=== PATIENT | female | born 2000 | race Caucasian/White ===

== ENCOUNTER 2021-04-30 02:55 | Emergency (ER) | payer OTHER, SELFPAY ==
[2021-04-30 02:59] VITALS: BP 124/79; PULSE 71; RESP 16; TEMP 37.7; O2SAT 100; BMI 23.8
[2021-04-30 03:32] VITALS: O2SAT 98
--- NOTE | 2021-04-30 03:33 | ED_ITS ---
HPI - URI/Sore Throat General Chief Complaint: Upper Respiratory Symptoms Stated Complaint: Sob Time Seen by Provider: 04/30/21 03:25 Source: patient Mode of arrival: ambulatory Limitations: no limitations History of Present Illness HPI Narrative: Patient not COVID vaccinated noticed shortness of breath on exertion nasal congestion also Related Data Allergies Allergy/AdvReac Type Severity Reaction Status Date / Time tobramycin [TOBRAMYCIN] Allergy Unknown HIVES Unverified 04/20/20 17:40 [facility] Past Medical History Medical History (Updated 04/30/21 @ 03:53 by Stephane Meng MD) No known health problems Social History Social History Alcohol intake: current Alcohol intake frequency: a few times a month Patient Tobacco Use Status: Current everyday Tobacco user Smoked in Last 30 Days: Yes Use of substances other than those prescribed or required for medical reasons: No Advance Directives: No Advance Directives Information Provided: No Patient : No Physical Exam Vital Signs: Vital Signs: Last Vital Signs Temp 100.7 F H 04/30/21 03:54 Pulse 60 04/30/21 03:54 Resp 15 04/30/21 03:54 BP 117/64 04/30/21 03:54 Pulse Ox 99 04/30/21 03:54 Body Mass Index 23.8 Appearance: Alert. Oriented X3. No acute distress. ENT: Pharynx normal. Oral Mucosa moist Neck: Normal inspection. Neck supple. CVS: Normal heart rate and rhythm. Pulses normal. Respiratory: No respiratory distress. Equal air entry bilateral, no wheezing/rales/rhonchi Abdomen: Soft and nontender. Skin: Skin warm and dry. Extremities: No lower extremity edema. No calf tenderness Neuro: Oriented X 3 MDM - URI/Sore Throat MDM Narrative Medical decision making narrative: with COVID-19 positive saturating 99% to 100% at room air lungs are clear will discharge patient home Lab Data Attestation: I reviewed the patient's lab results. Labs: Lab Results 04/30/21 Range/Units 03:36 COVID-19 (CRISTY) Positive A (Negative) COVID-19 Clin Com See Note Discharge Plan Discharge Clinical Impression: COVID-19 Patient Disposition: Home, Self-Care Instructions: COVID-19 (Coronavirus Disease 2019) (ED) Additional Instructions: Social isolation for 2 weeks as advised Report to the ER if increased shortness of breath
[2021-04-30 03:54] VITALS: BP 117/64; PULSE 60; RESP 15; TEMP 38.2; O2SAT 99
[2021-04-30 03:54] LABS: COVID-19 Test Positive (Negative)
[2021-04-30] MEDS: Acetaminophen 325 MG TABLET 650 MG PO (04:05)
== END 2021-04-30 04:07 | disposition home or self-care (01) ==
PROVIDERS: Emergency Provider Internal Medicine
DX: U07.1 COVID-19 (principal); R06.02 Shortness of breath; F17.210 Nicotine dependence, cigarettes, uncomplicated; Z71.6 Tobacco abuse counseling
CPT/HCPCS: 36415; 87635; 99283; 99285

== ENCOUNTER 2021-05-31 19:10 | Emergency (ER) | payer OTHER, SELFPAY ==
--- NOTE | ~2021-05-31 | XR_ITS ---
EXAMINATION: XR ANKLE, RIGHT XR FOOT, RIGHT CLINICAL INFORMATION: Right lower extremity injury. COMPARISON: None TECHNIQUE: AP, oblique, and lateral views of the right ankle and right foot. FINDINGS: No acute fracture or dislocation. The ankle mortise is maintained. No joint space narrowing or marginal osteophytes. No osseous erosion. No abnormal soft tissue calcification. Mild circumferential soft tissue swelling at the right ankle. XR/XR ankle RT min 3V IMPRESSION: Mild circumferential soft tissue swelling at the right ankle. No acute fracture or dislocation.
--- NOTE | ~2021-05-31 | XR_ITS ---
EXAMINATION: XR ANKLE, RIGHT XR FOOT, RIGHT CLINICAL INFORMATION: Right lower extremity injury. COMPARISON: None TECHNIQUE: AP, oblique, and lateral views of the right ankle and right foot. FINDINGS: No acute fracture or dislocation. The ankle mortise is maintained. No joint space narrowing or marginal osteophytes. No osseous erosion. No abnormal soft tissue calcification. Mild circumferential soft tissue swelling at the right ankle. XR/XR foot RT min 3V IMPRESSION: Mild circumferential soft tissue swelling at the right ankle. No acute fracture or dislocation.
[2021-05-31 19:27] VITALS: BP 122/76; PULSE 71; RESP 17; TEMP 36.7; O2SAT 98; BMI 22.8
--- NOTE | 2021-05-31 20:28 | ED_ITS ---
HPI - Extremity Injury (Lower) General Chief Complaint: Extremity Injury, Lower Stated Complaint: ankle inj Time Seen by Provider: 05/31/21 20:08 Source: patient Mode of arrival: ambulatory History of Present Illness HPI Narrative: 20-year-old female presenting to the ED complaining of right ankle pain/swelling s/p twisting injury at 1:00 a.m. patient reports fell backwards twisting ankle, denies head trauma, LOC, or injury to other area. Denies numbness, tingling, weakness. Has been minimally ambulatory Related Data Allergies Allergy/AdvReac Type Severity Reaction Status Date / Time tobramycin [TOBRAMYCIN] Allergy Intermediate HIVES Verified 05/31/21 19:26 Review of Systems Review of Systems: Constitutional: No Fever, No Chills ENT/Mouth: No Nasal Congestion, No sore throat Cardiovascular: No Chest Pain, No SOB Respiratory: No Cough Gastrointestinal: No Nausea, No Vomiting, No Abdominal pain Genitourinary:No Urinary Frequency, No Urgency, No Flank Pain Musculoskeletal: + joint pain, No Myalgias, + Joint Swelling Skin: No Skin Lesions, No rash Neuro: No Weakness, No Numbness, No Paresthesias Yes all other systems are reviewed and are negative PMFSH Past Medical History Attestation statement: The following information was validated with the patient. Medical History (Updated 05/31/21 @ 20:30 by AMADA Estrada) No known health problems Social History Social History Alcohol intake: current Alcohol intake frequency: a few times a month Patient Tobacco Use Status: Current everyday Tobacco user Advance Directives: No Advance Directives Information Provided: No Patient : No Physical Exam Vital Signs: Vital Signs: Last Vital Signs Temp 98.1 F 05/31/21 19:27 Pulse 71 05/31/21 19:27 Resp 17 05/31/21 19:27 BP 122/76 05/31/21 19:27 Pulse Ox 98 05/31/21 19:27 Body Mass Index 22.8 Const: General: cooperative, healthy appearing and no acute distress Orientation/consciousness: patient oriented x3 Limitations: no limitations HENMT: Head: Yes normal to inspection Ears: hearing grossly normal bilaterally General nose exam: Normal external nose present Face and sinus: Yes normal facial exam Eyes: General: appearance normal, both eyes and all related structures EOM: EOMs intact bilaterally Neck: Neck: Yes normal visual inspection and Yes no meningeal signs Resp: Effort & Inspection: normal respiratory effort and no respiratory distress Cardio: Rate: regular rate Peripheral pulses: dorsalis pedis present Skin: Rashes: no rashes Wounds: no wounds Neuro: General: patient oriented x3 and no meningeal signs Gait exam (Neuro): Normal gait present Extrem: Other: Right ankle without deformity. Right lateral foot with mild swelling. Right Ankle and Foot with lateral tenderness. No erythema/ecchymosis . Neurovascularly intact. ROM intact to toes and ankle with pain. Sensation intact to light touch Course Course Course Narrative: XR ankle RT min 3V / XR foot RT min 3V IMPRESSION: Mild circumferential soft tissue swelling at the right ankle. ? No acute fracture or dislocation.? >> patient placed in Vishal wrap, is to follow-up with PCP as needed Discharge Plan Discharge Clinical Impression: Ankle sprain and strain Patient Disposition: Home, Self-Care Instructions: Ankle Sprain (ED), How to Use an Elastic Bandage (ED), R.I.C.E. Treatment (ED) Additional Instructions: Your x-ray shows soft tissue swelling, no fracture or dislocation Wear Vishal wrap at home as needed for compression/stability, take off to shower Take Tylenol and Motrin at home for pain and swelling Ice, rest, elevate Please follow-up with her doctor Referrals: Physician,None [Primary Care Provider] - 5 days Stand Alone Forms: Work/School Release
== END 2021-05-31 20:32 | disposition home or self-care (01) ==
PROVIDERS: Emergency Provider Internal Medicine
DX: S93.401A Sprain of unspecified ligament of right ankle, initial encounter (principal); S96.911A Strain of unspecified muscle and tendon at ankle and foot level, right foot, initial encounter; X50.1XXA Overexertion from prolonged static or awkward postures, initial encounter; Y93.9 Activity, unspecified; Y92.9 Unspecified place or not applicable; Y99.9 Unspecified external cause status
CPT/HCPCS: 73610; 73630; 99283

== ENCOUNTER 2021-11-07 04:34 | Emergency (ER) | payer OTHER, SELFPAY ==
[2021-11-07 04:40] VITALS: BP 134/90; PULSE 106; O2SAT 98; BMI 23.8
--- NOTE | 2021-11-07 05:04 | ED_ITS ---
HPI - Overdose General Chief Complaint: Psychiatric Symptoms Stated Complaint: OD Time Seen by Provider: 11/07/21 05:03 Source: patient Mode of arrival: EMS History of Present Illness HPI Narrative: 21-year-old female without significant past medical history, but psychiatric history of depression, anxiety, prior suicide attempt, regular drinker of alcohol who presents via EMS who states that the patient was walking outside when she called EMS informed them that she had taken 15-28 anxiety pills. Patient corroborates that she obtained this bottle of ?antianxiety medication? 2 weeks ago from a friend?. She states that this evening she drink half of a 5th of [place], a few beers, and then proceeded to take 15-20 of the pills that were in the bottle she got from her friend. She states she does got into a bad head space.As per the triage note patient also admitted to marijuana and cocaine. She denies ever having any seizures from med staining from alcohol. Related Data Allergies Allergy/AdvReac Type Severity Reaction Status Date / Time tobramycin [TOBRAMYCIN] Allergy Intermediate HIVES Verified 05/31/21 19:26 Review of Systems Review of Systems: Pertinent positives and negatives as stated in HPI 10 point review of systems is otherwise negative. [facility] Past Medical History Medical History (Updated 11/07/21 @ 06:25 by Barbara Casanova MD) No known health problems Social History Social History Alcohol intake: current Alcohol intake frequency: a few times a month Patient Tobacco Use Status: Current everyday Tobacco user Advance Directives: No Physical Exam Vital Signs: Vital Signs: Last Vital Signs Pulse 84 11/07/21 06:13 Resp 16 11/07/21 06:13 BP 131/92 H 11/07/21 06:13 Pulse Ox 95 11/07/21 06:13 BMI result Body Mass Index 23.8 VITAL SIGNS: Reviewed. GENERAL: Well developed, well nourished, in no acute distress. HEAD: Normocephalic/atraumatic EYES: PERRLA, EOMI, pupils are not pinpoint EARS: Ext canals without abnormality, TMs non-bulging and non-erythematous NOSE: Nares patent bilateral OROPHARYNX: no oral lesions noted, posterior pharynx clear and non-erythematous without noted tonsillar enlargement/erythema/exudates NECK: Supple, no adenopathy LUNGS: Normal breath sounds. No adventitious sounds or accessory muscle use. CARDIOVASCULAR: Regular rate and rhythm without noted murmurs ABDOMEN: Soft, non-tender, non-distended with bowel sounds. MUSCULOSKELETAL: No tenderness, deformities, or effusions noted on gross inspection. EXTREMITIES: No cyanosis, clubbing or edema. SKIN: Inspection of the skin reveals no rashes NEUROLOGIC: Alert and oriented x 4, articulating well, Strength and sensation to light touch were grossly intact x 4, cranial nerves 2-12 are grossly intact. Course Course Course Narrative: 0510: 21-year-old female with history and clinical presentation consistent with depression, alcohol as well as drug intoxication with suicidal ideation and having taken 15-20 pills in an attempt to kill herself. She did call EMS approximately 10 minutes after she took the pills. At present she appears to be articulate and will be placed on cardiac monitoring as well as capnography and a full medical workup will be completed as well as speaking with poison Control. Poison Control Recommendations: - observed for 6 hours (1035) - Cardiac monitoring - urine toxicology - repeat EKG at 4hrs (0835) Reevaluation(s) Reevaluation #1: Patient placed in physician observation because the patient needed more time for medical clearance and evaluation by the care team. At the time observation was started the patient's vital signs were stable, patient is alert and oriented, neuro: Nonfocal, CV RRR, lungs clear Time: 06:22 MDM - Overdose Lab Data Result diagrams: 11/07/21 05:30 11/07/21 05:30 Labs: Lab Results 11/07/21 11/07/21 11/07/21 Range/Units 05:10 05:30 05:30 WBC 6.6 (4.8-10.8) X10*3/uL RBC 4.85 (4.20-5.50) X10*6/uL Hgb 15.2 (12.0-16.0) g/dl Hct 44.8 (37.0-47.0) % MCV 92.4 (80.0-98.0) fL MCH 31.3 (27.0-33.0) pg MCHC 33.9 (31.0-35.0) g/dl RDW 13.6 (11.0-16.0) % Plt Count 349 (160-400) X10*3/uL MPV 9.6 (9.4-12.3) fL Immature Gran % (Auto) 0.3 (0.0-0.4) % Neut % (Auto) 60.8 (45-73) % Lymph % (Auto) 29.4 (20-40) % Gilliam % (Auto) 5.8 (2-11) % Eos % (Auto) 2.6 (0-4) % Baso % (Auto) 1.1 (0-2) % Lymph # (Auto) 1.9 (1.2-4.9) X10*3/uL Gilliam # (Auto) 0.4 (0.1-1.2) X10*3/uL Eos # (Auto) 0.2 (0.0-0.4) X10*3/uL Baso # (Auto) 0.1 (0.0-0.2) X10*3/uL Abs Immat Gran (auto) 0.02 (0.00-0.03) X10*3/uL Absolute Neuts (auto) 4.0 (2.0-8.3) x10*3/uL Absolute Nucleated RBC 0.000 (0.0-0.012) X10*3/uL Nucleated RBC % (auto) 0.0 (0.0-0.2) /100WBC PT 10.2 (9.9-13.0) SEC INR 0.9 (0.9-1.1) APTT 35.4 (24.1-38.0) SEC Sodium (135-145) mmol/L Potassium (3.3-5.1) mmol/L Chloride (96-108) mmol/L Carbon Dioxide (22-29) mmol/L Anion Gap (12-20) BUN (9-16) mg/dL Creatinine (0.5-1.4) mg/dL Estim Creat Clear Calc Estimated GFR Random Glucose (60-115) mg/dL Calcium (8.4-10.2) mg/dL Magnesium (1.6-2.6) mg/dL Total Bilirubin (0.0-1.0) mg/dL AST (5-31) U/L ALT (0-31) U/L Alkaline Phosphatase (39-117) U/L Total Protein (6.5-8.0) g/dL Albumin (3.5-5.0) g/dL Lipase (8-78) U/L Salicylates (15-30) mg/dL Acetaminophen (<30) mcg/mL Ethyl Alcohol mg/dL COVID-19 (CRISTY) Negative (Negative) COVID-19 Clin Com See Note 11/07/21 11/07/21 Range/Units 05:30 05:30 WBC (4.8-10.8) X10*3/uL RBC (4.20-5.50) X10*6/uL Hgb (12.0-16.0) g/dl Hct (37.0-47.0) % MCV (80.0-98.0) fL MCH (27.0-33.0) pg MCHC (31.0-35.0) g/dl RDW (11.0-16.0) % Plt Count (160-400) X10*3/uL MPV (9.4-12.3) fL Immature Gran % (Auto) (0.0-0.4) % Neut % (Auto) (45-73) % Lymph % (Auto) (20-40) % Gilliam % (Auto) (2-11) % Eos % (Auto) (0-4) % Baso % (Auto) (0-2) % Lymph # (Auto) (1.2-4.9) X10*3/uL Gilliam # (Auto) (0.1-1.2) X10*3/uL Eos # (Auto) (0.0-0.4) X10*3/uL Baso # (Auto) (0.0-0.2) X10*3/uL Abs Immat Gran (auto) (0.00-0.03) X10*3/uL Absolute Neuts (auto) (2.0-8.3) x10*3/uL Absolute Nucleated RBC (0.0-0.012) X10*3/uL Nucleated RBC % (auto) (0.0-0.2) /100WBC PT (9.9-13.0) SEC INR (0.9-1.1) APTT (24.1-38.0) SEC Sodium 144 (135-145) mmol/L Potassium 4.0 (3.3-5.1) mmol/L Chloride 108 (96-108) mmol/L Carbon Dioxide 22 (22-29) mmol/L Anion Gap 18 (12-20) BUN 13 (9-16) mg/dL Creatinine 0.89 (0.5-1.4) mg/dL Estim Creat Clear Calc 77.7 Estimated GFR > 60 Random Glucose 110 (60-115) mg/dL Calcium 9.6 (8.4-10.2) mg/dL Magnesium 2.4 (1.6-2.6) mg/dL Total Bilirubin 0.3 (0.0-1.0) mg/dL AST 31 (5-31) U/L ALT 27 (0-31) U/L Alkaline Phosphatase 106 (39-117) U/L Total Protein 8.5 H (6.5-8.0) g/dL Albumin 5.2 H (3.5-5.0) g/dL Lipase 38 (8-78) U/L Salicylates < 5.0 L (15-30) mg/dL Acetaminophen < 1 (<30) mcg/mL Ethyl Alcohol 290 mg/dL COVID-19 (CRISTY) (Negative) COVID-19 Clin Com ECG Data Attestation: I personally reviewed and interpreted this ECG as follows: Prior ECG tracings: available for review Interpretation: Sinus tachycardia, HR-109, no STEMI, AL/QRS/QTC are within normal limits. Discharge Plan Discharge Clinical Impression: Suicidal ideation, Depression, Suicide attempt Patient Disposition: Still a Patient
--- NOTE | 2021-11-07 05:04 | ECG_ITS ---
Test Reason : OVERDOSE Blood Pressure : / mmHG Vent. Rate : 109 BPM Atrial Rate : 109 BPM P-R Int : 138 ms QRS Dur : 078 ms QT Int : 352 ms P-R-T Axes : 040 070 007 degrees QTc Int : 474 ms Sinus tachycardia Otherwise normal ECG When compared with ECG of 25-OCT-2015 17:47, ST no longer depressed in Inferior leads T wave inversion less evident in Inferior leads Referred By: Barbara Casanova Electronically Signed By:MARLEY DIAZ MD
[2021-11-07 05:11] VITALS: BP 131/92; PULSE 97; RESP 16; O2SAT 97
--- NOTE | 2021-11-07 05:15 | PC.NURSE ---
I spoke with Poison control at regarding this patient. 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
[2021-11-07 05:30] LABS: COVID-19 Test Negative (Negative)
[2021-11-07 05:35] LABS: MANUAL DIFF FLAG NO
[2021-11-07 05:36] LABS: Basophils Absolute Auto 0.1 X10*3/uL (0.0-0.2); Basophils Percent Auto 1.1 % (0-2); Eosinophils Absolute Auto 0.2 X10*3/uL (0.0-0.4); Eosinophils Percent Auto 2.6 % (0-4); Hematocrit 44.8 % (37.0-47.0); Hemoglobin 15.2 g/dl (12.0-16.0); Imm Gran Abs Auto 0.02 X10*3/uL (0.00-0.03); Imm Gran Pct Auto 0.3 % (0.0-0.4); Lymphocytes Absolute Auto 1.9 X10*3/uL (1.2-4.9); Lymphocytes Percent Auto 29.4 % (20-40); Mean Corpuscular HGB Conc 33.9 g/dl (31.0-35.0); Mean Corpuscular Hemoglobin 31.3 pg (27.0-33.0); Mean Corpuscular Volume 92.4 fL (80.0-98.0); Mean Platelet Volume 9.6 fL (9.4-12.3); Monocytes Absolute Auto 0.4 X10*3/uL (0.1-1.2); Monocytes Percent Auto 5.8 % (2-11); Neutrophils Percent Auto 60.8 % (45-73); Platelet Count 349 X10*3/uL (160-400); Red Blood Count 4.85 X10*6/uL (4.20-5.50); Red Cell Distribution Width 13.6 % (11.0-16.0); White Blood Count 6.6 X10*3/uL (4.8-10.8)
[2021-11-07 05:41] LABS: INTERNATIONAL NORM RATIO 0.9 (0.9-1.1); Prothrombin Time 10.2 SEC (9.9-13.0)
[2021-11-07 05:44] LABS: Partial Thromboplastin Time 35.4 SEC (24.1-38.0)
[2021-11-07] MEDS: 0.9 % Sodium Chloride 1,000 ML 999 ML IV (05:45)
[2021-11-07 05:53] LABS: Ethanol 290 mg/dL
[2021-11-07 05:58] LABS: Acetaminophen LAB < 1 mcg/mL (<30); Alanine Aminotransferase 27 U/L (0-31); Albumin Level 5.2 g/dL (3.5-5.0); Alkaline Phosphatase 106 U/L (39-117); Anion Gap 18 (12-20); Aspartate Amino Transferase 31 U/L (5-31); Bilirubin Total 0.3 mg/dL (0.0-1.0); Blood Urea Nitrogen 13 mg/dL (9-16); Calcium 9.6 mg/dL (8.4-10.2); Carbon Dioxide 22 mmol/L (22-29); Chloride 108 mmol/L (96-108); Creatinine Clr Calc Pharmacy 77.7; Estimated Glomerular Filt Rate > 60; Glucose Random 110 mg/dL (60-115); Lipase 38 U/L (8-78); Magnesium 2.4 mg/dL (1.6-2.6); Salicylate < 5.0 mg/dL (15-30); Sodium 144 mmol/L (135-145); Total Protein 8.5 g/dL (6.5-8.0)
[2021-11-07 06:13] VITALS: BP 131/92; PULSE 84; RESP 16; O2SAT 95
[2021-11-07 07:04] LABS: HCG Quantitative < 2 mIU/mL
[2021-11-07] MEDS: ondansetron HCL 4 MG/2 ML VIAL IVPUSH (07:44)
[2021-11-07 08:57] VITALS: BP 129/55; PULSE 87; RESP 18; O2SAT 95
--- NOTE | 2021-11-07 08:59 | ECG_ITS ---
Test Reason : overdose Blood Pressure : / mmHG Vent. Rate : 082 BPM Atrial Rate : 082 BPM P-R Int : 122 ms QRS Dur : 084 ms QT Int : 392 ms P-R-T Axes : 045 068 027 degrees QTc Int : 457 ms Normal sinus rhythm Nonspecific ST abnormality Abnormal ECG When compared with ECG of 07-NOV-2021 05:10, No significant change was found Referred By: Camilo Aguilar Electronically Signed By:MARLEY DIAZ MD
[2021-11-07 10:37] LABS: Acetaminophen LAB < 1 mcg/mL (<30); Salicylate < 5.0 mg/dL (15-30)
[2021-11-07] MEDS: Ondansetron ODT 4 MG TAB.RAPDIS TRANSLINGU (17:08)
[2021-11-07 17:54] LABS: Appearance Urine CLEAR; Color Urine YELLOW; Glucose Urine UA NEG (NEG); Leukocyte Esterase Urine NEG (NEG); Nitrite Urine POS (NEG); PH 5.5 (5.0-8.0); Specific Gravity - Urine >= 1.030 (1.005-1.025); UACC Culture Trigger YES; Urine Blood 2+ (NEG); Urine Ketones 40 MG/DL (NEG); Urine Protein TRACE MG/DL (NEG-TRACE)
[2021-11-07 17:58] LABS: UPreg QC Valid YES; Urine Pregnancy NEGATIVE (NEGATIVE)
[2021-11-07 18:05] LABS: Amphetamine Screen Urine Not Detected (Not Detect); Barbiturates, Urine Not Detected (Not Detect); Benzodiazepines Screen Urine Not Detected (Not Detect); Cannabinoid Screen Urine POSITIVE (Not Detect); Cocaine Screen Urine POSITIVE (Not Detect); Fentanyl, urine Not Detected (Not Detect); Opiate Screen Urine Not Detected (Not Detect); Phencyclidine Screen Urine Not Detected (Not Detect)
[2021-11-07 18:37] VITALS: BP 131/88; PULSE 92; RESP 16; TEMP 36.8; O2SAT 96
[2021-11-07 18:40] LABS: Squamous Epithelial Cell Urine TRACE /LPF
[2021-11-07 18:42] LABS: Granular Casts Urine 0-2 /LPF
[2021-11-07 18:43] LABS: Bacteria Urine 3+ /LPF
--- NOTE | 2021-11-09 14:40 | MHC.CARE ---
CARE Team has made multiple attempts to connect with pt by phone. Per boyfriend, pt is sleeping but he will again remind her to connect with CARE Team. Boyfreind confirms that they have CARE Team number. Plan is for pt to reach out when shes ready.
== END 2021-11-07 20:00 | disposition home or self-care (01) ==
PROVIDERS: Emergency Medicine Emergency Medical Services; Student in an Organized Health Care Education/Training Program; Emergency Provider Internal Medicine
DX: T65.92XA Toxic effect of unspecified substance, intentional self-harm, initial encounter (principal); R45.851 Suicidal ideations; R00.0 Tachycardia, unspecified; Y92.9 Unspecified place or not applicable; Z20.822 Contact with and (suspected) exposure to COVID-19; Z79.899 Other long term (current) drug therapy
CPT/HCPCS: 36415; 80053; 80143; 80179; 80307; 81001; 81025; 82077; 83690; 83735; 84702; 85025; 85610; 85730; 87086; 87088; 87186; 87635; 93005; 96361; 96374; 99284; J2405

== ENCOUNTER 2021-12-17 14:49 | Emergency (ER) | payer OTHER, SELFPAY ==
[2021-12-17 15:03] VITALS: BP 148/88; PULSE 98; RESP 18; TEMP 36.8; O2SAT 98; BMI 22.8
[2021-12-17 15:34] LABS: IDNOW Serial# 16C4AD1C; Influenza A Negative (Negative); Influenza B2 Negative (Negative)
[2021-12-17 15:45] LABS: IDNOW Serial# 08D9AD1C; Strep A Nucleic Acid Invalid (Negative)
== END 2021-12-17 21:34 | disposition left against medical advice (07) ==
PROVIDERS: Emergency Provider Emergency Medicine
DX: J02.9 Acute pharyngitis, unspecified (principal); R13.10 Dysphagia, unspecified; R51.9 Headache, unspecified; Z20.822 Contact with and (suspected) exposure to COVID-19
CPT/HCPCS: 87502; 87651; 99283

== ENCOUNTER 2021-12-18 06:49 | Emergency (ER) | payer OTHER, SELFPAY ==
[2021-12-18 06:55] VITALS: BP 151/89; PULSE 102; RESP 16; TEMP 36.2; O2SAT 98; BMI 22.8
[2021-12-18 07:25] LABS: IDNOW Serial# 08D9AD1C
[2021-12-18 07:27] LABS: Strep A Nucleic Acid Invalid (Negative)
[2021-12-18 07:30] LABS: COVID-19 Test Negative (Negative); IDNOW Serial# 55D5AD1C; Influenza A Negative (Negative); Influenza B2 Negative (Negative)
[2021-12-18] MEDS: Amoxicillin/Potassium Clav 875 MG TABLET PO (09:02)
[2021-12-18] MEDS: dexAMETHasone sod phosphate 10 MG/ML VIAL IVPUSH (09:02)
[2021-12-18] MEDS: Ibuprofen 800 MG TABLET PO (09:02)
--- NOTE | 2021-12-18 09:05 | ED_ITS ---
HPI - General Adult General Chief complaint: General Medical Stated complaint: swollen throat, unable to swallow; ear & head pain Time Seen by Provider: 12/18/21 08:07 Source: patient Mode of arrival: ambulatory History of Present Illness HPI narrative: 21-year-old female with no significant past medical history presenting to the ED complaining of sore throat and painful swallowing x3 days. Admits came to ED yesterday was swabbed for COVID-19 and strep however LWT'd due to wait time. Also reports right-sided ear pain. Denies fever, inability to swallow, cough, SOB Onset (ago): day(s) Related Data Previous Rx's Medication Instructions Recorded acetaminophen 500 mg tablet 500 mg PO Q6H PRN #14 tab 12/18/21 (Tylenol Extra Strength) amoxicillin 875 mg-potassium 1 tab PO BID 7 Days #14 tab 12/18/21 clavulanate 125 mg tablet ibuprofen 600 mg tablet 600 mg PO Q6H PRN #14 tab 12/18/21 Allergies Allergy/AdvReac Type Severity Reaction Status Date / Time tobramycin [TOBRAMYCIN] Allergy Intermediate HIVES Verified 12/17/21 15:03 Review of Systems Review of Systems: Constitutional: No Fever, No Chills ENT/Mouth: No Ear Pain, No Nasal Congestion, No Sinus Pain, No Hoarseness, + sore throat, No Rhinorrhea, No Swallowing Difficulty Cardiovascular: No Chest Pain, No SOB Respiratory: No Cough, No Sputum, No Wheezing Gastrointestinal: No Nausea, No Vomiting, No Diarrhea, No Abdominal pain Genitourinary: No Dysuria, No Urinary Frequency, No Flank Pain Musculoskeletal: No joint pain, No Myalgias, No Joint Swelling Skin: No Skin Lesions, No rash Neuro: No Weakness Yes all other systems are reviewed and are negative [facility] Past Medical History Attestation statement: The following information was validated with the patient. Medical History No known health problems Social History Social History Alcohol intake: current Alcohol intake frequency: a few times a month Patient Tobacco Use Status: Current everyday Tobacco user Advance Directives: No Physical Exam ED Vital Signs: Vital Signs - 24 hr 12/18/21 06:55 Temperature 97.2 F Pulse Rate 102 H Respiratory Rate 16 Blood Pressure 151/89 H Pulse Oximetry 98 BMI result Body Mass Index 22.8 Const General: cooperative, healthy appearing and no acute distress Orientation/consciousness: patient oriented x3 Limitations: no limitations HENMT Other: + bilateral tonsillar erythema/swelling and exudate. Greater swelling noted to left side extending to soft palate. No evidence of GRIPPER MACHINE OPERATOR. Head: Yes normal to inspection and Yes atraumatic Ears: hearing grossly normal bilaterally, external ears normal, TM's normal bilaterally and mastoids normal General nose exam: Normal external nose present Face and sinus: Yes normal facial exam Mouth: Normal oral and palatal mucosa present Throat: Yes uvula midline, Yes abnormal tonsil, No peritonsillar mass and No uvula laterally displaced Eyes General: appearance normal, both eyes and all related structures EOM: EOMs intact bilaterally Neck Other: + bilateral submandibular lymphadenopathy Neck: Yes normal visual inspection and Yes no meningeal signs Resp Effort & Inspection: normal respiratory effort, able to speak in complete sentences, no respiratory distress and no stridor Auscultation: clear to auscultation bilaterally, no crackles, no rales, no rhonchi and no wheezes Cardio Rate: regular rate Heart sounds: S1 normal heart sound present and S2 normal heart sound present General: Yes no CVA tenderness Back/Spine/Pelvis Back: no CVA tenderness Skin Rashes: no rashes Wounds: no wounds Neuro General: patient oriented x3, tone normal and no meningeal signs Gait exam (Neuro): Normal gait present Extrem General: Yes normal to inspection Course Course Course Narrative: -case discussed with Dr. Castellon who also evaluated patient, and is in agreement with plan. No evidence of GRIPPER MACHINE OPERATOR this time Medical Decision Making [facility] Narrative Medical decision making narrative: 21-year-old female with no significant past medical history presenting to the ED complaining of sore throat and painful swallowing x3 days. On exam mildly tachycardic likely from pain, NAD/nontoxic, no respiratory distress, talking in complete sentences. Physical exam as above evidence of strep pharyngitis, no evidence of GRIPPER MACHINE OPERATOR at this time. Plan: COVID-19, rapid strep, influenza testing, p.o. Decadron, PO Augmentin, Motrin Medical Records Medical records reviewed: Yes I reviewed the patient's medical records. Lab Data Lab results reviewed: Yes I reviewed the patient's lab results. Labs: Lab Results 12/18/21 12/18/21 12/18/21 Range/Units 07:03 07:03 07:04 COVID-19 (CRISTY) Negative (Negative) COVID-19 Clin Com See Note Influenza Type A (JACQUELYN) Negative (Negative) Influenza Type B (JACQUELYN) Negative (Negative) Influenza A & B Note See Note S. pyogenes GrpA JACQUELYN Invalid (Negative) Discharge Plan Discharge Clinical Impression: Strep pharyngitis Patient Disposition: Home, Self-Care Instructions: Pharyngitis (ED) Additional Instructions: You have strep throat. Your given a dose of your antibiotic, a dose of steroid and Motrin today in the emergency department. Gargle with warm salt water. Take Augmentin which is an antibiotic as prescribed. you should be re-evaluated in 2-3 days. If symptoms persist or worsen, swelling worsens, have difficulty/inability to swallow please return to the emergency department Prescriptions: New amoxicillin-pot clavulanate 875-125 mg tablet 1 tab PO BID 7 Days Qty: 14 0RF ibuprofen 600 mg tablet 600 mg PO Q6H PRN (Reason: fever or pain) Qty: 14 0RF acetaminophen [Tylenol Extra Strength] 500 mg tablet 500 mg PO Q6H PRN (Reason: fever or pain) Qty: 14 0RF Referrals: Physician,None [Primary Care Provider] - 2 days (For re-evaluation) Stand Alone Forms: Work/School Release
== END 2021-12-18 09:25 | disposition home or self-care (01) ==
PROVIDERS: Emergency Provider Emergency Medicine
DX: J02.0 Streptococcal pharyngitis (principal); R13.10 Dysphagia, unspecified; F17.200 Nicotine dependence, unspecified, uncomplicated; Z20.822 Contact with and (suspected) exposure to COVID-19; Z79.899 Other long term (current) drug therapy; Z71.6 Tobacco abuse counseling
CPT/HCPCS: 87071; 87502; 87635; 87651; 99283; J1100

== ENCOUNTER 2022-09-18 18:49 | Emergency (ER) | payer OTHER, SELFPAY ==
--- NOTE | 2022-09-18 19:50 | PC.NURSE ---
pt called multiple time to triage. no answer
== END 2022-09-18 19:56 | disposition left against medical advice (07) ==
LOC: HO.ED 19:51
PROVIDERS: Emergency Provider Emergency Medicine
DX: R06.02 Shortness of breath (principal)

== ENCOUNTER 2022-09-22 13:34 | Emergency (ER) | payer OTHER, SELFPAY ==
--- NOTE | ~2022-09-22 | XR_ITS ---
EXAMINATION: XR CHEST CLINICAL INFORMATION: Shortness of breath COMPARISON: 10/27/2015 TECHNIQUE: 2 views of the chest were obtained. FINDINGS: Suboptimal depth of inspiration. Crowding of normal lung markings and distortion of the cardiac silhouette. No focal pneumonia. No effusion or pneumothorax. No mass or adenopathy. Nonobstructive gas pattern. No acute osseous finding. XR/XR chest 2V IMPRESSION: Low lung volumes.
[2022-09-22 13:36] VITALS: BP 147/83; PULSE 91; RESP 18; TEMP 37.2; O2SAT 100; BMI 22.8
--- NOTE | 2022-09-22 13:36 | ED.URI ---
HPI - URI/Sore Throat General Chief Complaint: Upper Respiratory Symptoms <AMADA Ness - Last Filed: 09/22/22 13:38> Stated Complaint: cough, sob, headache <AMADA Ness - Last Filed: 09/22/22 13:38> Time Seen by Provider: 09/22/22 17:14 <AMADA Ness - Last Filed: 09/22/22 13:38> Source: patient and RN notes reviewed <Chan Bashir - Last Filed: 09/22/22 17:29> Mode of arrival: ambulatory <Chan Bashir - Last Filed: 09/22/22 17:29> Limitations: no limitations <Chan Bashir - Last Filed: 09/22/22 17:29> History of Present Illness HPI Narrative: 22-year-old female who denies any past medical history presents for evaluation cough, congestion, shortness breast pain She reports that she has had a dry cough for about 2 or 3 weeks now. She feels her symptoms are worsening and now she developed sinus pressure. She also complains of right ear pain, headache and feels that she is beginning to feel short of breath The patient reports that she smokes cigarettes and marijuana She reports her overall discomfort as 6 in 10, aching and constant. She is not taking any medications to help alleviate her symptoms No other complaints or concerns at this time. <Chan Bashir - Last Filed: 09/22/22 17:29> Related Data Home Medications: Previous Rx's Medication Instructions Recorded acetaminophen 500 mg tablet 500 mg PO Q6H PRN fever or pain 12/18/21 (Tylenol Extra Strength) #14 tabs amoxicillin 875 mg-potassium 1 tab PO BID 7 days #14 tabs 12/18/21 clavulanate 125 mg tablet ibuprofen 600 mg tablet 600 mg PO Q6H PRN fever or pain 12/18/21 #14 tabs amoxicillin 875 mg-potassium 1 tab PO BID 10 days #20 tabs 09/22/22 clavulanate 125 mg tablet <AMADA Ness - Last Filed: 09/22/22 13:38> Allergies/Adverse Reactions: Allergies Allergy/AdvReac Type Severity Reaction Status Date / Time tobramycin [TOBRAMYCIN] Allergy Intermediate HIVES Verified 09/22/22 13:41 <AMADA Ness - Last Filed: 09/22/22 13:38> Review of Systems Constitutional: Constitutional: Reports as per HPI, Denies chills, Denies fatigue, Denies fever(s), Reports headache(s) and Reports malaise <Chan Bashir - Last Filed: 09/22/22 17:29> ENT: Reports headache(s) and Reports sinus pressure <Chanprashanth Bashir - Last Filed: 09/22/22 17:29> Comments: Reports right ear pain <Chanprashanth Bashir - Last Filed: 09/22/22 17:29> Cardiovascular: Cardiovascular: Denies chest pain and Reports dyspnea <Chanprashanth Hectory - Last Filed: 09/22/22 17:29> Respiratory: Respiratory: Reports cough and Reports dyspnea <Chan Bashir - Last Filed: 09/22/22 17:29> Gastrointestinal: Gastrointestinal: Denies abdominal pain, Denies constipation and Denies vomiting <Chan Bashir - Last Filed: 09/22/22 17:29> Genitourinary: Genitourinary: Denies dysuria <Chan Bashir - Last Filed: 09/22/22 17:29> Neurologic: Reports headache(s) <Chanprashanth Bashir - Last Filed: 09/22/22 17:29> Endocrine: Endocrine: Denies fatigue <Chan Bashir - Last Filed: 09/22/22 17:29> [facility] Past Medical History Medical History: Medical History No known health problems <AMADA Ness - Last Filed: 09/22/22 13:38> Social History Social History: Social History Alcohol intake: current Alcohol intake frequency: a few times a month Patient Tobacco Use Status: Current everyday Tobacco user Advance Directives: No Advance Directives Information Provided: No <AMADA Ness - Last Filed: 09/22/22 13:38> Physical Exam Vital Signs: Vital Signs: Last Vital Signs Temp 98.9 F 09/22/22 13:36 Pulse 91 09/22/22 13:36 Resp 18 09/22/22 13:36 BP 147/83 H 09/22/22 13:36 Pulse Ox 100 09/22/22 13:36 O2 Del Method 09/22/22 13:36 BMI result Body Mass Index 22.8 <AMADA Ness - Last Filed: 09/22/22 13:38> Vital Signs: Last Vital Signs Temp 98.9 F 09/22/22 13:36 Pulse 91 09/22/22 13:36 Resp 18 09/22/22 13:36 BP 147/83 H 09/22/22 13:36 Pulse Ox 100 09/22/22 13:36 O2 Del Method 09/22/22 13:36 BMI result Body Mass Index 22.8 <Chan Hectory - Last Filed: 09/22/22 17:29> Const: General: cooperative, healthy appearing, comfortable and no acute distress <Chan BurlesonAntione - Last Filed: 09/22/22 17:29> Orientation/consciousness: patient oriented x3 <Chan O - Last Filed: 09/22/22 17:29> HEENT: Other: Bony landmarks identifiable. Tympanic membranes without erythema or perforations. Bilateral serous middle ear effusions noted. External ear canals clear bilaterally <Chan BurlesonPresidio - Last Filed: 09/22/22 17:29> Head: Yes normocephalic and Yes atraumatic <Chan Presidio - Last Filed: 09/22/22 17:29> Ears: external ears normal and TM's abnormal bilaterally <Chan BurlesonPresidio - Last Filed: 09/22/22 17:29> Face and sinus: Yes sinus tenderness <Chan OPresidio - Last Filed: 09/22/22 17:29> Throat: Yes posterior oropharynx normal <Chan OPresidio - Last Filed: 09/22/22 17:29> Eyes: Eyelids: Yes eyelids normal <Chan BurlesonPresidio - Last Filed: 09/22/22 17:29> Conjunctivae: conjunctivae normal <Chan OPresidio - Last Filed: 09/22/22 17:29> Sclerae: sclerae normal <Chan Bashir - Last Filed: 09/22/22 17:29> Pupils: Equal, round and reactive pupils present and Pupil accommodation reflex normal <Chan Bashir - Last Filed: 09/22/22 17:29> EOM: EOMs intact bilaterally <Chan Bashir - Last Filed: 09/22/22 17:29> Neck: Neck: No anterior neck swelling <Chan Hectory - Last Filed: 09/22/22 17:29> Lymphatic: no lymphadenopathy noted <Chan Hectory - Last Filed: 09/22/22 17:29> Resp: Effort & Inspection: normal respiratory effort, able to speak in complete sentences and Actively coughing Quality: dry <Chan Bashir - Last Filed: 09/22/22 17:29> Auscultation: clear to auscultation bilaterally <Chan Hector Last Filed: 09/22/22 17:29> Skin: General skin exam: no rashes or lesions noted <Chan Bashir - Last Filed: 09/22/22 17:29> Neuro: General: patient oriented x3 <Chan Bashir Last Filed: 09/22/22 17:29> Cranial nerves: Yes Equal, round and reactive pupils present <Chan Bashir Last Filed: 09/22/22 17:29> Course Course Course Narrative: RME - 22 yo female otherwise healthy presenting to the ER for evaluation of worsening productive cough for the last 2-3 weeks. It is associated with SOB, mostly at night, along with headaches and sinus pressure. CXR and viral swabs ordered. Stable to go to the waiting room until treatment room is available. <AMADA Ness - Last Filed: 09/22/22 13:38> Medical Decision Making Medical Decision Making MDM Narrative: This is a healthy 22-year-old female presents for evaluation of upper respiratory symptoms with sinus pressure, cough, congestion, ear pain. In her symptoms initially started 2-3 weeks ago per her report. She likely had a viral upper respiratory infection. Her symptoms did not clear and now worsening with sinus pressure is likely that she developed a bacterial sinusitis. There is no evidence of infection. We will treat with Augmentin twice daily for 10 days. <Chan Bashir - Last Filed: 09/22/22 17:29> Differential Diagnosis Viral studies Upper respiratory infection Sinusitis Bronchitis Otitis media Otitis externa Pneumonia Influenza <Chan Bashir - Last Filed: 09/22/22 17:29> Lab Data Labs: Lab Results 09/22/22 09/22/22 Range/Units 13:46 13:46 COVID-19 (CRISTY) Negative (Negative) COVID-19 Clin Com See Note Influenza Type A (JACQUELYN) Negative (Negative) Influenza Type B (JACQUELYN) Negative (Negative) Influenza A & B Note See Note <AMADA Ness - Last Filed: 09/22/22 13:38> Lab Results 09/22/22 09/22/22 Range/Units 13:46 13:46 COVID-19 (CRISTY) Negative (Negative) COVID-19 Clin Com See Note Influenza Type A (JACQUELYN) Negative (Negative) Influenza Type B (JACQUELYN) Negative (Negative) Influenza A & B Note See Note <Chan Bashir - Last Filed: 09/22/22 17:29> Independent Interpretation I performed an independent interpretation of an: Plain X-Ray <Chan Bashir - Last Filed: 09/22/22 17:29> Interpretation: Agree with Radiology interpretation of clear chest x-ray <Chan Bashir - Last Filed: 09/22/22 17:29> Discharge Plan Discharge Clinical Impression: Acute bacterial sinusitis <AMADA Ness - Last Filed: 09/22/22 13:38> Patient Disposition: Home, Self-Care <AMADA Ness - Last Filed: 09/22/22 13:38> Instructions: Sinusitis (ED) <AMADA Ness - Last Filed: 09/22/22 13:38> Additional Instructions: Take Augmentin twice daily for the next 10 days to treat her sinus infection. He may use ibuprofen or Tylenol for pressure and headache. You may also use [id number] Sudafed or Afrin which is a nasal spray to help with your congestion and ear pain Follow-up with your primary doctor <AMADA Ness - Last Filed: 09/22/22 13:38> Prescriptions: New amoxicillin-pot clavulanate 875-125 mg tablet 1 tab PO BID 10 Days Qty: 20 0RF No Action amoxicillin-pot clavulanate 875-125 mg tablet 1 tab PO BID 7 Days Qty: 14 0RF ibuprofen 600 mg tablet 600 mg PO Q6H PRN (Reason: fever or pain) Qty: 14 0RF acetaminophen [Tylenol Extra Strength] 500 mg tablet 500 mg PO Q6H PRN (Reason: fever or pain) Qty: 14 0RF <AMADA Ness - Last Filed: 09/22/22 13:38>
[2022-09-22 14:10] LABS: IDNOW Serial# BCCEAD1C
[2022-09-22 14:11] LABS: COVID-19 Test Negative (Negative); IDNOW Serial# 16C4AD1C; Influenza A Negative (Negative); Influenza B2 Negative (Negative)
== END 2022-09-22 17:35 | disposition home or self-care (01) ==
PROVIDERS: Physician Assistant; Emergency Provider Emergency Medicine
DX: J32.9 Chronic sinusitis, unspecified (principal); R05.9 Cough, unspecified; R06.02 Shortness of breath; Z20.822 Contact with and (suspected) exposure to COVID-19; Z20.828 Contact with and (suspected) exposure to other viral communicable diseases; F17.200 Nicotine dependence, unspecified, uncomplicated; Z71.6 Tobacco abuse counseling; Z79.899 Other long term (current) drug therapy
CPT/HCPCS: 71046; 87502; 87635; 99282

== ENCOUNTER 2022-11-20 14:26 | Emergency (ER) | payer OTHER, SELFPAY ==
[2022-11-20 14:37] VITALS: BP 145/76; PULSE 103; RESP 18; TEMP 36.2; O2SAT 99; BMI 22.8
--- NOTE | 2022-11-20 14:53 | ED.GENADULT ---
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, her back is tight, pain does not radiate, it is worse with certain positions, there is no associated muscle weakness or loss of sensation there is no abdominal pain no chest pain no shortness of breath When the pain is severe she does feel nauseous but has not vomited, she is not nauseous now, she denies any fever, she has no burning with urination no frequency of urination no incontinence <AMADA Kimbrough - Last Filed: 11/24/22 11:19> Related Data Home medications: Previous Rx's Medication Instructions Recorded acetaminophen 500 mg tablet 500 mg PO Q6H PRN fever or pain 12/18/21 (Tylenol Extra Strength) #14 tabs amoxicillin 875 mg-potassium 1 tab PO BID 7 days #14 tabs 12/18/21 clavulanate 125 mg tablet ibuprofen 600 mg tablet 600 mg PO Q6H PRN fever or pain 12/18/21 #14 tabs amoxicillin 875 mg-potassium 1 tab PO BID 10 days #20 tabs 09/22/22 clavulanate 125 mg tablet acetaminophen 500 mg tablet 1,000 mg PO QID PRN pain #30 tabs 11/20/22 ibuprofen 600 mg tablet 600 mg PO Q6H PRN pain #20 tabs 11/20/22 lidocaine 5 % topical patch 1 patch topical DAILY Back pain 11/20/22 #15 ea lorazepam 0.5 mg tablet (Ativan) 0.5 mg PO BEDTIME PRN muscle spasm 11/20/22 #10 tabs <Elizabeth Roblero NP - Last Filed: 11/20/22 15:17> Allergies/adverse reactions: Allergies Allergy/AdvReac Type Severity Reaction Status Date / Time tobramycin [TOBRAMYCIN] Allergy Intermediate HIVES Verified 11/20/22 14:40 <Elizabeth Roblero NP - Last Filed: 11/20/22 15:17> [facility] Past Medical History Source: nursing notes reviewed <AMADA Kimbrough - Last Filed: 11/24/22 11:19> Medical History: Medical History No known health problems <Elizabeth Roblero NP - Last Filed: 11/20/22 15:17> Social History Social History: Social History Alcohol intake: current Alcohol intake frequency: a few times a week Patient Tobacco Use Status: Current everyday Tobacco user Smoked in Last 30 Days: Yes Use of substances other than those prescribed or required for medical reasons: Yes Substance Use Type: Marijuana Advance Directives: No Advance Directives Information Provided: No <Elizabeth Roblero NP - Last Filed: 11/20/22 15:17> Physical Exam ED Vital Signs: Vital Signs - 24 hr 11/20/22 14:37 11/20/22 16:00 Temperature 97.2 F 99 F Pulse Rate 103 H 88 Respiratory Rate 18 18 Blood Pressure 145/76 H 142/92 H Pulse Oximetry 99 98 Oxygen Delivery Method Room Air Room Air BMI result Body Mass Index 22.8 <Elizabeth Roblero NP - Last Filed: 11/20/22 15:17> Vital Signs - 24 hr 11/20/22 14:37 11/20/22 16:00 Temperature 97.2 F 99 F Pulse Rate 103 H 88 Respiratory Rate 18 18 Blood Pressure 145/76 H 142/92 H Pulse Oximetry 99 98 Oxygen Delivery Method Room Air Room Air BMI result Body Mass Index 22.8 <AMADA Kimbrough - Last Filed: 11/24/22 11:19> General appearance is no distress Head is normocephalic atraumatic Neck is supple nontender Respiratory no distress The abdomen is soft nontender no rebound no guarding The back had bilateral paraspinal lower lumbar tenderness , worse on the right side, there is no midline tenderness, there is no CVA tenderness, there is no rash Extremities full range of motion x4 Hip exam there is full complete range of motion in both hips, patient ambulates with no limp Neuro motor is 5/5 x4, sensation is intact and symmetrical <AMADA Kimbrough - Last Filed: 11/24/22 11:19> Course Course Course Narrative: This is a rapid medical exam. Deferred additional HPI, ROS, PE to primary provider. 22 yo female here with right flank pain radiating to hip, subjective fever, urinary symptoms x 1 week. Will check labs, UA. VSS <Elizabeth Roblero NP - Last Filed: 11/20/22 15:17> This is a rapid medical exam. Deferred additional HPI, ROS, PE to primary provider. 22 yo female here with right flank pain radiating to hip, subjective fever, urinary symptoms x 1 week. Will check labs, UA. VSS Patient had complained in triage that she has decreased frequency of urination, but does not have urinary frequency does not have dysuria no discomfort with urination, no abdominal pain no bladder pain no fever no vomiting, so has no symptoms of typical UTI Urinalysis was contaminated and was not diagnostic of infection, there were some ketones so patient is advised to make sure she is well hydrated Chemistry and CBC were nondiagnostic White count of 13.9 is noted, likely from stress and discomfort, no sign of any active infection now Patient is treated with analgesics and muscle relaxer and is discharged to follow with primary doctor <AMADA Kimbrough - Last Filed: 11/24/22 11:19> Medical Decision Making Lab Data MDM Lab Attestation statement: I reviewed the patient's lab results. <AMADA Kimbrough - Last Filed: 11/24/22 11:19> Result Diagrams: 11/20/22 14:48 11/20/22 14:48 <Elizabeth Roblero NP - Last Filed: 11/20/22 15:17> Labs: Lab Results 11/20/22 11/20/22 11/20/22 Range/Units 14:48 14:48 16:52 WBC 13.9 H (4.8-10.8) X10*3/uL RBC 4.60 (4.20-5.50) X10*6/uL Hgb 14.2 (12.0-16.0) g/dl Hct 42.2 (37.0-47.0) % MCV 91.7 (80.0-98.0) fL MCH 30.9 (27.0-33.0) pg MCHC 33.6 (31.0-35.0) g/dl RDW 12.8 (11.0-16.0) % Plt Count 360 (160-400) X10*3/uL MPV 9.2 L (9.4-12.3) fL Immature Gran % (Auto) 0.4 (0.0-0.4) % Neut % (Auto) 69.0 (45-73) % Lymph % (Auto) 15.1 L (20-40) % [place] % (Auto) 14.9 H (2-11) % Eos % (Auto) 0.2 (0-4) % Baso % (Auto) 0.4 (0-2) % Lymph # (Auto) 2.1 (1.2-4.9) X10*3/uL [place] # (Auto) 2.1 H (0.1-1.2) X10*3/uL Eos # (Auto) 0.0 (0.0-0.4) X10*3/uL Baso # (Auto) 0.1 (0.0-0.2) X10*3/uL Abs Immat Gran (auto) 0.06 H (0.00-0.03) X10*3/uL Absolute Neuts (auto) 9.6 H (2.0-8.3) x10*3/uL Absolute Nucleated RBC 0.000 (0.0-0.012) X10*3/uL Nucleated RBC % (auto) 0.0 (0.0-0.2) /100WBC Smear Tech's Comments VERIFIED Sodium 133 L (135-145) mmol/L Potassium 3.7 (3.3-5.1) mmol/L Chloride 98 (96-108) mmol/L Carbon Dioxide 20 L (22-29) mmol/L Anion Gap 19 (12-20) BUN 6 L (9-16) mg/dL Creatinine 0.93 (0.5-1.4) mg/dL Estim Creat Clear Calc 73.7 Estimated GFR > 60 Random Glucose 98 (60-115) mg/dL Calcium 9.2 (8.4-10.2) mg/dL Total Bilirubin 0.7 (0.0-1.0) mg/dL AST 15 (5-31) U/L ALT 19 (0-31) U/L Alkaline Phosphatase 114 (39-117) U/L Total Protein 7.6 (6.5-8.0) g/dL Albumin 4.5 (3.5-5.0) g/dL Beta HCG, Quant < 2 mIU/mL Urine Color Yellow Urine Appearance Cloudy Urine pH 6.0 (5.0-9.0) Ur Specific [place] 1.015 (1.005-1.025) Urine Protein 30 (1+) H (Neg-Trace) mg/dL Urine Glucose (UA) Negative (Negative) mg/dL Urine Ketones >=160 (Negative) mg/dL Urine Blood Small (1+) H (Negative) Urine Nitrite Negative (Negative) Ur Leukocyte Esterase Trace H (Negative) Urine RBC 0-2 (0-2) /HPF Urine WBC 0-5 (0-5) /HPF Ur Squamous Epith Cells 11-20 (0-2) /HPF Urine Bacteria 2+ (None Seen) Hyaline Casts 0-2 (0-2) /LPF <Elizabeth Roblero, GOVERNMENT RELATIONS MANAGER - Last Filed: 11/20/22 15:17> Lab Results 11/20/22 11/20/22 11/20/22 Range/Units 14:48 14:48 16:52 WBC 13.9 H (4.8-10.8) X10*3/uL RBC 4.60 (4.20-5.50) X10*6/uL Hgb 14.2 (12.0-16.0) g/dl Hct 42.2 (37.0-47.0) % MCV 91.7 (80.0-98.0) fL MCH 30.9 (27.0-33.0) pg MCHC 33.6 (31.0-35.0) g/dl RDW 12.8 (11.0-16.0) % Plt Count 360 (160-400) X10*3/uL MPV 9.2 L (9.4-12.3) fL Immature Gran % (Auto) 0.4 (0.0-0.4) % Neut % (Auto) 69.0 (45-73) % Lymph % (Auto) 15.1 L (20-40) % [place] % (Auto) 14.9 H (2-11) % Eos % (Auto) 0.2 (0-4) % Baso % (Auto) 0.4 (0-2) % Lymph # (Auto) 2.1 (1.2-4.9) X10*3/uL [place] # (Auto) 2.1 H (0.1-1.2) X10*3/uL Eos # (Auto) 0.0 (0.0-0.4) X10*3/uL Baso # (Auto) 0.1 (0.0-0.2) X10*3/uL Abs Immat Gran (auto) 0.06 H (0.00-0.03) X10*3/uL Absolute Neuts (auto) 9.6 H (2.0-8.3) x10*3/uL Absolute Nucleated RBC 0.000 (0.0-0.012) X10*3/uL Nucleated RBC % (auto) 0.0 (0.0-0.2) /100WBC Smear Tech's Comments VERIFIED Sodium 133 L (135-145) mmol/L Potassium 3.7 (3.3-5.1) mmol/L Chloride 98 (96-108) mmol/L Carbon Dioxide 20 L (22-29) mmol/L Anion Gap 19 (12-20) BUN 6 L (9-16) mg/dL Creatinine 0.93 (0.5-1.4) mg/dL Estim Creat Clear Calc 73.7 Estimated GFR > 60 Random Glucose 98 (60-115) mg/dL Calcium 9.2 (8.4-10.2) mg/dL Total Bilirubin 0.7 (0.0-1.0) mg/dL AST 15 (5-31) U/L ALT 19 (0-31) U/L Alkaline Phosphatase 114 (39-117) U/L Total Protein 7.6 (6.5-8.0) g/dL Albumin 4.5 (3.5-5.0) g/dL Beta HCG, Quant < 2 mIU/mL Urine Color Yellow Urine Appearance Cloudy Urine pH 6.0 (5.0-9.0) Ur Specific [place] 1.015 (1.005-1.025) Urine Protein 30 (1+) H (Neg-Trace) mg/dL Urine Glucose (UA) Negative (Negative) mg/dL Urine Ketones >=160 (Negative) mg/dL Urine Blood Small (1+) H (Negative) Urine Nitrite Negative (Negative) Ur Leukocyte Esterase Trace H (Negative) Urine RBC 0-2 (0-2) /HPF Urine WBC 0-5 (0-5) /HPF Ur Squamous Epith Cells 11-20 (0-2) /HPF Urine Bacteria 2+ (None Seen) Hyaline Casts 0-2 (0-2) /LPF <AMADA Kimbrough - Last Filed: 11/24/22 11:19> Discharge Plan Discharge Clinical Impression: Back pain <Elizabeth Roblero NP - Last Filed: 11/20/22 15:17> Patient Disposition: Home, Self-Care <Elizabeth Roblero NP - Last Filed: 11/20/22 15:17> Additional Instructions: Your back pain is likely muscle strain and tension No urinary tract infection, labs did not show any worrisome abnormality You may be mildly dehydrated so drink plenty of fluids Ativan relieve stress and muscle tension, so you can try it at night and see if it helps the discomfort at night and enables her to sleep better, but it is habit forming so only use it for a couple of days Follow with primary doctor Return to ER any time any worse condition or any concerns <Elizabeth Roblero NP - Last Filed: 11/20/22 15:17> Prescriptions: New lorazepam [Ativan] 0.5 mg tablet 0.5 mg PO BEDTIME PRN (Reason: muscle spasm) Qty: 10 0RF ibuprofen 600 mg tablet 600 mg PO Q6H PRN (Reason: pain) Qty: 20 0RF acetaminophen 500 mg tablet 1,000 mg PO QID PRN (Reason: pain) Qty: 30 0RF lidocaine 5 % adhesive patch,medicated 1 patch topical DAILY Qty: 15 0RF Rx Instructions: leave on most painful area for up to 12 hrs No Action amoxicillin-pot clavulanate 875-125 mg tablet 1 tab PO BID 7 Days Qty: 14 0RF ibuprofen 600 mg tablet 600 mg PO Q6H PRN (Reason: fever or pain) Qty: 14 0RF acetaminophen [Tylenol Extra Strength] 500 mg tablet 500 mg PO Q6H PRN (Reason: fever or pain) Qty: 14 0RF amoxicillin-pot clavulanate 875-125 mg tablet 1 tab PO BID 10 Days Qty: 20 0RF <Elizabeth Roblreo NP - Last Filed: 11/20/22 15:17> Stand Alone Forms: Work/School Release <Elizabeth Roblero NP - Last Filed: 11/20/22 15:17> Interventions: ED Discharge Assessment Last Done: 11/20/22 18:47 <Elizabeth Roblero NP - Last Filed: 11/20/22 15:17> Discharge Date/Time: 11/20/22 18:48 <Elizabeth Roblero NP - Last Filed: 11/20/22 15:17>
[2022-11-20 14:54] LABS: Basophils Absolute Auto 0.1 X10*3/uL (0.0-0.2); Basophils Percent Auto 0.4 % (0-2); Eosinophils Percent Auto 0.2 % (0-4); Hematocrit 42.2 % (37.0-47.0); Hemoglobin 14.2 g/dl (12.0-16.0); Imm Gran Abs Auto 0.06 X10*3/uL (0.00-0.03); Imm Gran Pct Auto 0.4 % (0.0-0.4); Lymphocytes Absolute Auto 2.1 X10*3/uL (1.2-4.9); Lymphocytes Percent Auto 15.1 % (20-40); Mean Corpuscular HGB Conc 33.6 g/dl (31.0-35.0); Mean Corpuscular Hemoglobin 30.9 pg (27.0-33.0); Mean Corpuscular Volume 91.7 fL (80.0-98.0); Mean Platelet Volume 9.2 fL (9.4-12.3); Monocytes Absolute Auto 2.1 X10*3/uL (0.1-1.2); Monocytes Percent Auto 14.9 % (2-11); Neutrophils Absolute Auto 9.6 x10*3/uL (2.0-8.3); Platelet Count 360 X10*3/uL (160-400); Red Cell Distribution Width 12.8 % (11.0-16.0); SCAN SMEAR FLAG 1; White Blood Count 13.9 X10*3/uL (4.8-10.8)
[2022-11-20 15:18] LABS: MANUAL DIFF FLAG SCAN
[2022-11-20 15:21] LABS: Alanine Aminotransferase 19 U/L (0-31); Albumin Level 4.5 g/dL (3.5-5.0); Alkaline Phosphatase 114 U/L (39-117); Anion Gap 19 (12-20); Aspartate Amino Transferase 15 U/L (5-31); Bilirubin Total 0.7 mg/dL (0.0-1.0); Blood Urea Nitrogen 6 mg/dL (9-16); Calcium 9.2 mg/dL (8.4-10.2); Carbon Dioxide 20 mmol/L (22-29); Chloride 98 mmol/L (96-108); Creatinine Clr Calc Pharmacy 73.7; Estimated Glomerular Filt Rate > 60; Glucose Random 98 mg/dL (60-115); Potassium 3.7 mmol/L (3.3-5.1); SLIDE REVIEW VERIFIED; Sodium 133 mmol/L (135-145); Total Protein 7.6 g/dL (6.5-8.0)
[2022-11-20 15:22] LABS: HCG Quantitative < 2 mIU/mL
[2022-11-20 16:00] VITALS: BP 142/92; PULSE 88; RESP 18; TEMP 37.2; O2SAT 98
--- NOTE | 2022-11-20 16:44 | PC.NURSE ---
pt reports lower back pain x1 week. reports low PO intake of water and food due to associated Nausea. denies vomiting, denies SOB
[2022-11-20 17:11] LABS: Appearance Urine Cloudy; Color Urine Yellow; Glucose Urine UA Negative (Negative); Leukocyte Esterase Urine Trace (Negative); Nitrite Urine Negative (Negative); Specific Gravity - Urine 1.015 (1.005-1.025); UMIC TRIGGER UACC YES; Urine Blood Small (1+) (Negative); Urine Ketones >=160 mg/dL (Negative); Urine Protein 30 (1+) mg/dL (Neg-Trace)
[2022-11-20 18:09] LABS: Bacteria Urine 2+ (None Seen); Hyaline Casts Urine 0-2 /LPF (0-2); RBC Urine 0-2 /HPF (0-2); WBC Urine 0-5 /HPF (0-5)
== END 2022-11-20 18:48 | disposition home or self-care (01) ==
PROVIDERS: Emergency Provider Internal Medicine
DX: M54.50 Low back pain, unspecified (principal); Z79.899 Other long term (current) drug therapy
CPT/HCPCS: 36415; 80053; 81001; 84702; 85025; 99283; 99284

== ENCOUNTER 2024-02-27 02:38 | Emergency (ER) | payer OTHER, SELFPAY ==
--- NOTE | ~2024-02-27 | XR_ITS ---
EXAMINATION: XR CHEST CLINICAL INFORMATION: Dyspnea COMPARISON: 09/22/2022 TECHNIQUE: Frontal view of the chest was obtained. FINDINGS: The lungs are clear with no focal consolidation. No evidence of pneumothorax, pulmonary edema, or pleural effusions. The cardiomediastinal silhouette is unremarkable. No acute osseous findings. XR/XR chest 1V IMPRESSION: No acute cardiopulmonary findings.
[2024-02-27 02:40] VITALS: BP 150/80; PULSE 102; RESP 20; TEMP 36.7; O2SAT 99; BMI 27.4
[2024-02-27 03:31] LABS: Influenza A PCR NEGATIVE (Negative); Influenza B PCR NEGATIVE (Negative); Resp Syncy Virus RNA Qual PCR NEGATIVE (Negative); SARS COV2 PCR INHOUSE NEGATIVE (Negative)
[2024-02-27 05:04] VITALS: BP 136/80; PULSE 65; RESP 17; TEMP 37.2; O2SAT 99
--- NOTE | 2024-02-27 07:08 | ED.SOB ---
HPI - SOB/Dyspnea General Chief Complaint: Dyspnea Stated Complaint: SOB Time Seen by Provider: 02/27/24 06:35 Source: patient, RN notes reviewed and old records reviewed Mode of arrival: ambulatory History of Present Illness ED Provider: Tabitha Singletary PA-C HPI Narrative: 23-year-old female with no significant past medical history presenting to the ED complaining of SOB and feeling like she can not get enough air x this morning. Reports intermittent symptoms x months, denies precipitating or exacerbating factors. Denies symptoms at present. Does admit to cigarette smoking. Denies fever, chills, cough, chest pain, pedal edema, recent travel, history of clots Related Data Previous Rx's ?Medication ?Instructions ?Recorded acetaminophen 500 mg tablet 500 mg PO Q6H PRN fever or pain 12/18/21 (Tylenol Extra Strength) #14 tabs amoxicillin 875 mg-potassium 1 tab PO BID 7 days #14 tabs 12/18/21 clavulanate 125 mg tablet ibuprofen 600 mg tablet 600 mg PO Q6H PRN fever or pain 12/18/21 #14 tabs amoxicillin 875 mg-potassium 1 tab PO BID 10 days #20 tabs 09/22/22 clavulanate 125 mg tablet acetaminophen 500 mg tablet 1,000 mg (2 x 500 mg) PO QID PRN 11/20/22 pain #30 tabs ibuprofen 600 mg tablet 600 mg PO Q6H PRN pain #20 tabs 11/20/22 lidocaine 5 % topical patch 1 patch topical DAILY Back pain 11/20/22 #15 ea lorazepam 0.5 mg tablet (Ativan) 0.5 mg PO BEDTIME PRN muscle spasm 11/20/22 #10 tabs Allergies Allergy/AdvReac Type Severity Reaction Status Date / Time tobramycin [TOBRAMYCIN] Allergy Intermediate HIVES Verified 02/27/24 02:42 Review of Systems Review of Systems: Constitutional: No Fever, No Chills ENT/Mouth: No Ear Pain, No Nasal Congestion, No Sinus Pain, No sore throat, No Rhinorrhea, No Swallowing Difficulty Cardiovascular: No Chest Pain, + SOB Respiratory: No Cough, No Sputum, No Wheezing Gastrointestinal: No Nausea, No Vomiting, No Diarrhea, No Constipation, No Abdominal pain Musculoskeletal: No joint pain, No Myalgias, No Joint Swelling Skin: No Skin Lesions, No rash Neuro: No Weakness Yes all other systems are reviewed and are negative Constitutional: Constitutional: Reports as per [facility] Past Medical History Attestation statement: The following information was validated with the patient. Source: old records reviewed Medical History No known health problems Social History Social History Alcohol intake: current Alcohol intake frequency: does not drink Patient Tobacco Use Status: Current everyday Tobacco user Smoked in Last 30 Days: Yes Use of substances other than those prescribed or required for medical reasons: No Substance Use Type: Marijuana Advance Directives: No Advance Directives Information Provided: No Do you have a plan to hurt others: No Plan Physical Exam Vital Signs: Vital Signs: Last Vital Signs Temp 98.9 F 02/27/24 05:04 Pulse 65 02/27/24 05:04 Resp 17 02/27/24 05:04 BP 136/80 02/27/24 05:04 Pulse Ox 99 02/27/24 05:04 O2 Del Method Room Air 02/27/24 05:04 BMI result Body Mass Index 27.4 Const: General: cooperative, healthy appearing and no acute distress Orientation/consciousness: patient oriented x3 Limitations: no limitations HEENT: Head: Yes normal to inspection and Yes atraumatic Ears: hearing grossly normal bilaterally General nose exam: Normal external nose present Face and sinus: Yes normal facial exam Eyes: General: appearance normal, both eyes and all related structures EOM: EOMs intact bilaterally Neck: Neck: Yes normal visual inspection and Yes no meningeal signs Resp: Effort & Inspection: normal respiratory effort and no respiratory distress Auscultation: clear to auscultation bilaterally, no crackles, no rales, no rhonchi and no wheezes Cardio: Rate: regular rate Heart sounds: S1 normal heart sound present and S2 normal heart sound present Skin: Rashes: no rashes Wounds: no wounds Neuro: General: patient oriented x3, tone normal and no meningeal signs Cranial nerves: Yes CN's II-XII intact bilaterally Gait exam (Neuro): Normal gait present Extrem: General: Yes normal to inspection, Yes no pedal edema and Yes no calf tenderness Course Course Course Narrative: -COVID/flu/RSV negative -CXR unremarkable > patient asymptomatic at present. Discussed needed close follow-up with PCP/pulmonology Results discussed with patient including worrisome signs and symptoms and strict return precautions, and when to return to the emergency department. They verbalized understanding and feel safe for discharge at this time. Medical Decision Making Medical Decision Making [facility] Narrative: 23-year-old female with no significant past medical history presenting to the ED complaining of SOB and feeling like she can not get enough air x this morning. On exam initially tachycardic to 102, NAD, nontoxic appearing, talking in complete sentences, no respiratory distress, lungs CTA, no pedal edema, no calf tenderness. Concern for viral illness vs anxiety vs pneumonia. Lower suspicion for ACS/PE or dissection or DVT/bronchitis or pericarditis/myocarditis Plan: Viral testing, CXR, EKG Please refer to course for remaining clinical decision making, interpretation of labs/imaging results, and discussions with consultants and/or family members. Differential Diagnosis Differential Diagnoses: The differential diagnosis associated with the presentation includes As above Lab Data [facility] Lab Attestation statement: I reviewed the patient's lab results. Labs: Lab Results 02/27/24 Range/Units 02:54 Influenza Type A (PCR) NEGATIVE (Negative) Influenza Type B (PCR) NEGATIVE (Negative) RSV RNA Qual (PCR) NEGATIVE (Negative) SARS-CoV-2 RNA (RT-PCR) NEGATIVE (Negative) Independent Interpretation I performed an independent interpretation of an: EKG (My interpretation EKG sinus bradycardia with short OH at a rate of 57. QRS ED. No STEMI. Nonischemic) and Plain X-Ray Radiology Impression Discussion of test interpretation with radiology: I have reviewed the radiologist's reading. External Record Review External record reviewed: Inpatient record, Office record, Outpatient record, Prior outpatient labs, Prior outpatient radiology, Primary care record and Outside ED record Tests considered The following testing was considered but not selected: As above Discharge Plan Discharge Clinical Impression: Shortness of breath Patient Disposition: Home, Self-Care Prescriptions: No Action amoxicillin-pot clavulanate 875-125 mg tablet 1 tab PO BID 7 Days Qty: 14 0RF ibuprofen 600 mg tablet 600 mg PO Q6H PRN (Reason: fever or pain) Qty: 14 0RF acetaminophen [Tylenol Extra Strength] 500 mg tablet 500 mg PO Q6H PRN (Reason: fever or pain) Qty: 14 0RF amoxicillin-pot clavulanate 875-125 mg tablet 1 tab PO BID 10 Days Qty: 20 0RF lorazepam [Ativan] 0.5 mg tablet 0.5 mg PO BEDTIME PRN (Reason: muscle spasm) Qty: 10 0RF ibuprofen 600 mg tablet 600 mg PO Q6H PRN (Reason: pain) Qty: 20 0RF acetaminophen 500 mg tablet 1,000 mg PO QID PRN (Reason: pain) Qty: 30 0RF lidocaine 5 % adhesive patch,medicated 1 patch topical DAILY Qty: 15 0RF Rx Instructions: leave on most painful area for up to 12 hrs Print Language: Indonesian
--- NOTE | 2024-02-27 07:10 | ECG_ITS ---
Test Reason : sob Blood Pressure : / mmHG Vent. Rate : 057 BPM Atrial Rate : 057 BPM P-R Int : 110 ms QRS Dur : 080 ms QT Int : 434 ms P-R-T Axes : 030 067 044 degrees QTc Int : 422 ms Sinus bradycardia with short IA Otherwise normal ECG When compared with ECG of 07-NOV-2021 09:07, No significant change was found Referred By: Tabitha Singletary Electronically Signed By:RAVEN CHACON
[2024-02-27 08:36] VITALS: BP 144/83; PULSE 60; RESP 18; TEMP 37; O2SAT 98
[2024-02-27 08:40] VITALS: BP 144/83; PULSE 60; RESP 18; TEMP 37; O2SAT 98
== END 2024-02-27 08:46 | disposition home or self-care (01) ==
PROVIDERS: Emergency Provider Emergency Medicine
DX: R06.02 Shortness of breath (principal); Z03.818 Encounter for observation for suspected exposure to other biological agents ruled out; R00.0 Tachycardia, unspecified; F17.200 Nicotine dependence, unspecified, uncomplicated
CPT/HCPCS: 0241U; 71045; 93005; 99283; 99285

== ENCOUNTER → 2024-02-27 07:10 | Outpatient (BNV) | payer OTHER, SELFPAY | PROVIDERS: Emergency Provider Emergency Medicine; Visit Provider Internal Medicine | DX: R00.1 Bradycardia, unspecified (principal); R06.02 Shortness of breath | CPT/HCPCS: 93010 ==

== ENCOUNTER 2024-09-17 06:57 | Emergency (ER) | payer OTHER, SELFPAY ==
[2024-09-17 07:11] VITALS: BP 161/98; PULSE 133; RESP 16; TEMP 36.2; O2SAT 97; BMI 23.0
--- NOTE | 2024-09-17 07:14 | ECG_ITS ---
Test Reason : TACHY Blood Pressure : */* mmHG Vent. Rate : 108 BPM Atrial Rate : 108 BPM P-R Int : 136 ms QRS Dur : 82 ms QT Int : 346 ms P-R-T Axes : 68 76 -6 degrees QTcB Int : 463 ms Sinus tachycardia Nonspecific ST and T wave abnormality Abnormal ECG When compared with ECG of 27-Feb-2024 07:35, Vent. rate has increased by [address] no longer elevated in Inferior leads T wave inversion now evident in Inferior leads Nonspecific T wave abnormality now evident in Lateral leads Referred By: Maddie Conway Electronically Signed By: MARLEY DIAZ MD
--- NOTE | 2024-09-17 07:17 | ED.PSYCH ---
HPI - Psych General Chief Complaint: Psychiatric Symptoms Stated Complaint: mental health eval Time Seen by Provider: 09/17/24 07:14 Source: patient and old records reviewed Mode of arrival: ambulatory Limitations: no limitations History of Present Illness ED Provider: ADALID ANDRADE Narrative: 24 yo female no dx of mental health issues reports she uses cocaine and occasionally drink ETOH she states she is here due to depression and thoughts of self harm and SI but no plan. She has a safe place to live. She denies trauma and only other complaint is a stuffy nose over the past few days. She has no HI/AH. MD complaint: suicidal ideation and feels depressed Onset (ago): day(s) Duration: getting worse History of same: Yes Relieving factors: none Exacerbating factors: drug use and other Context: significant life stressor Associated psychiatric symptoms: depression and suicidal ideation Associated symptoms: other (rhinorrhea) Treatments prior to arrival: none If self harm: admits thoughts of self harm Related Data Previous Rx's ?Medication ?Instructions ?Recorded acetaminophen 500 mg tablet 500 mg PO Q6H PRN fever or pain 12/18/21 (Tylenol Extra Strength) #14 tabs amoxicillin 875 mg-potassium 1 tab PO BID 7 days #14 tabs 12/18/21 clavulanate 125 mg tablet ibuprofen 600 mg tablet 600 mg PO Q6H PRN fever or pain 12/18/21 #14 tabs amoxicillin 875 mg-potassium 1 tab PO BID 10 days #20 tabs 09/22/22 clavulanate 125 mg tablet acetaminophen 500 mg tablet 1,000 mg (2 x 500 mg) PO QID PRN 11/20/22 pain #30 tabs ibuprofen 600 mg tablet 600 mg PO Q6H PRN pain #20 tabs 11/20/22 lidocaine 5 % topical patch 1 patch topical DAILY Back pain 11/20/22 #15 ea lorazepam 0.5 mg tablet (Ativan) 0.5 mg PO BEDTIME PRN muscle spasm 11/20/22 #10 tabs Allergies Allergy/AdvReac Type Severity Reaction Status Date / Time tobramycin [TOBRAMYCIN] Allergy Intermediate HIVES Verified 09/17/24 07:17 Review of Systems Review of Systems: Constitutional : No Fever, No Chills ENT/Mouth : No Ear Pain, No Nasal Congestion, No sore throat, pos rhinorrhea Eyes: No Eye Pain, No Swelling, No Redness Cardiovascular : No Chest Pain, No SOB Respiratory : No Cough, No Sputum, No Dyspnea Gastrointestinal : No Nausea, No Vomiting, No Diarrhea, No Hematochezia, No Melena Genitourinary : No Dysuria, No Urinary Frequency, No Hematuria Musculoskeletal : No Myalgias Skin : No Skin Lesions, No rash Neuro : No Weakness, No Numbness, No Paresthesias, No Dizziness, No Headache Psych : positive Anxiety, positive Depression, positive SI no HI All other systems reviewed and are negative [facility] Past Medical History Attestation statement: The following information was validated with the patient. Source: old records reviewed Medical History No known health problems Social History Social History (Updated 09/17/24 @ 07:19 by Maddie Conway DO) Alcohol intake: current Alcohol intake frequency: 3 or more drinks per day Patient Tobacco Use Status: Current everyday Tobacco user Smoked in Last 30 Days: Yes Use of substances other than those prescribed or required for medical reasons: Yes Substance Use Type: Crack/Cocaine and Marijuana Advance Directives: No Advance Directives Information Provided: No Physical Exam Vital Signs: Vital Signs: Last Vital Signs Temp 97.1 F 09/17/24 07:11 Pulse 133 H 09/17/24 07:11 Resp 16 09/17/24 07:11 BP 161/98 H 09/17/24 07:11 Pulse Ox 97 09/17/24 07:11 O2 Del Method Room Air 09/17/24 07:11 BMI result Body Mass Index 23.0 Appearance: Alert. Oriented X3. No acute distress. Eyes: Pupils equal, round and reactive to light. ENT: Pharynx normal. Neck: Normal inspection. Neck supple. CVS: tachycardic heart rate and rhythm. Pulses normal. Respiratory: No respiratory distress. Breath sounds normal. Abdomen: Soft and nontender. Skin: Skin warm and dry. Normal skin color. Normal skin turgor. Extremities: No lower extremity edema. No calf ttp Neuro: Oriented X 3. No motor deficit. No sensory deficit. CN2-12 intact Medications Administered Discontinued Medications Generic Name Dose Route Start Last Admin Trade Name Freq PRN Reason Stop Dose Admin Ibuprofen 600 mg 09/17/24 14:40 09/17/24 14:46 Ibuprofen 600 Mg Tablet PO 09/17/24 14:41 600 mg ONCE ONE Administration Medical Decision Making Medical Decision Making MDM Narrative: 24 yo female here with c/o depression and SI as well as runny nose. At this time will need basic labs, EKG given cocaine abuse, viral panel given URI symptoms she will need CARE team consult as well. No trauma reported, has safe place to live, no AH/H. Differential Diagnosis Differential Diagnoses: The differential diagnosis associated with the presentation includes depression, substance abuse Admission/Observation Consideration of admission/observation: Escalation of care including admission/observation considered physician observation pending CARE team assessment observation ended 330pm medically sober wants to go home, cleared by CARE team. Consult Healthcare Provider Management of the patient was discussed with: Behavioral Health Provider Lab Data [facility] Lab Attestation statement: I reviewed the patient's lab results. 09/17/24 07:34 09/17/24 07:34 Labs: Lab Results 09/17/24 09/17/24 09/17/24 Range/Units 07:34 08:28 08:29 WBC 4.0 L (4.8-10.8) X10*3/uL RBC 4.21 (4.20-5.50) X10*6/uL Hgb 14.1 (12.0-16.0) g/dl Hct 40.4 (37.0-47.0) % MCV 96.0 (80.0-98.0) fL MCH 33.5 H (27.0-33.0) pg MCHC 34.9 (31.0-35.0) g/dl RDW 14.0 (11.0-16.0) % Plt Count 269 D (160-400) X10*3/uL MPV 9.5 (9.4-12.3) fL Immature Gran % (Auto) 0.5 H (0.0-0.4) % Neut % (Auto) 49.9 (45-73) % Lymph % (Auto) 40.0 (20-40) % [place] % (Auto) 7.2 (2-11) % Eos % (Auto) 0.7 (0-4) % Baso % (Auto) 1.7 (0-2) % Lymph # (Auto) 1.6 (1.2-4.9) X10*3/uL [place] # (Auto) 0.3 (0.1-1.2) X10*3/uL Eos # (Auto) 0.0 (0.0-0.4) X10*3/uL Baso # (Auto) 0.1 (0.0-0.2) X10*3/uL Abs Immat Gran (auto) 0.02 (0.00-0.03) X10*3/uL Absolute Neuts (auto) 2.0 (2.0-8.3) x10*3/uL Absolute Nucleated RBC 0.000 (0.0-0.012) X10*3/uL Nucleated RBC % (auto) 0.0 (0.0-0.2) /100WBC Sodium 144 (135-145) mmol/L Potassium 3.6 (3.3-5.1) mmol/L Chloride 106 (96-108) mmol/L Carbon Dioxide 26 (22-29) mmol/L Anion Gap 16 (12-20) BUN 6 L (9-16) mg/dL Creatinine 0.69 (0.5-1.4) mg/dL Estim Creat Clear Calc 97.7 Estimated GFR > 60 Random Glucose 103 (60-115) mg/dL Calcium 9.0 (8.4-10.2) mg/dL Magnesium 2.1 (1.6-2.6) mg/dL Total Bilirubin 0.1 (0.0-1.0) mg/dL Direct Bilirubin < 0.2 (0.0-0.5) mg/dL AST 45 H (5-31) U/L ALT 34 H (0-31) U/L Alkaline Phosphatase 86 (39-117) U/L Total Protein 8.4 H (6.5-8.0) g/dL Albumin 4.8 (3.5-5.0) g/dL Beta HCG, Quant < 2 mIU/mL Urine Color Yellow Urine Appearance Clear Urine pH 7.0 (5.0-9.0) Ur Specific [place] <= 1.005 (1.005-1.025) Urine Protein Negative (Neg-Trace) mg/dL Urine Glucose (UA) Negative (Negative) mg/dL Urine Ketones Negative (Negative) mg/dL Urine Blood Negative (Negative) Urine Nitrite Negative (Negative) Ur Leukocyte Esterase Negative (Negative) Urine Opiates Screen Not Detected (Not Detect) Ur Buprenorphine Scrn Not Detected (Not Detect) ng/mL Ur Oxycodone Screen Not Detected (Not Detect) ng/mL Urine Methadone Screen Not Detected (Not Detect) ng/mL Urine Fentanyl Screen Not Detected (Not Detect) Ur Barbiturates Screen Not Detected (Not Detect) Ur Phencyclidine Scrn Not Detected (Not Detect) Ur Amphetamines Screen Not Detected (Not Detect) U Benzodiazepines Scrn Not Detected (Not Detect) Urine Cocaine Screen POSITIVE H (Not Detect) U Marijuana (THC) Screen POSITIVE H (Not Detect) Ethyl Alcohol 353 H* mg/dL Influenza Type A (PCR) NEGATIVE (Negative) Influenza Type B (PCR) NEGATIVE (Negative) RSV RNA Qual (PCR) NEGATIVE (Negative) SARS-CoV-2 RNA (RT-PCR) NEGATIVE (Negative) Independent Interpretation I performed an independent interpretation of an: EKG Interpretation: Rate: 108 Rhythm: sinus tach Coul[place]: normal Normal P waves. Normal PAOLA. Normal QRS complex. ST T wave : normal no BERTIN qTC: 463 prior studies: no acute ischemia The study has been interpreted contemporaneously by me. . External Record Review External record reviewed: Outpatient record Discharge Plan Discharge Clinical Impression: Alcohol abuse Depression Qualifiers: Depression Type: other depression Qualified Code(s): F32.89 - Other specified depressive episodes Patient Disposition: Home, Self-Care Instructions: Alcohol Use Disorder (ED), Depression (ED) Additional Instructions: Alcohol use disorder You were seen in the Emergency Department today for treatment of alcohol use disorder.? You may have been given medications to help with your withdrawal symptoms.? Please do not drink alcohol with them. This is very dangerous and can cause respiratory depression or other adverse reactions depending on the medication. If you would like to cut down or stop your alcohol use please consider calling our outpatient Addiction Treatment office:? [facility] (M-F [id number]) [address] [facility] [address] ? You have also been given a list of treatment providers in the area that can assist as well.? If you experience seizures, vomiting blood, black stools, falls, severe headache, chest pain, fevers, trouble breathing, hallucinations or any other concerns you need to call 911 or seek immediate care. Please stay hydrated. Prescriptions: No Action amoxicillin-pot clavulanate 875-125 mg tablet 1 tab PO BID 7 Days Qty: 14 0RF ibuprofen 600 mg tablet 600 mg PO Q6H PRN (Reason: fever or pain) Qty: 14 0RF acetaminophen [Tylenol Extra Strength] 500 mg tablet 500 mg PO Q6H PRN (Reason: fever or pain) Qty: 14 0RF amoxicillin-pot clavulanate 875-125 mg tablet 1 tab PO BID 10 Days Qty: 20 0RF lorazepam [Ativan] 0.5 mg tablet 0.5 mg PO BEDTIME PRN (Reason: muscle spasm) Qty: 10 0RF ibuprofen 600 mg tablet 600 mg PO Q6H PRN (Reason: pain) Qty: 20 0RF acetaminophen 500 mg tablet 1,000 mg PO QID PRN (Reason: pain) Qty: 30 0RF lidocaine 5 % adhesive patch,medicated 1 patch topical DAILY Qty: 15 0RF Rx Instructions: leave on most painful area for up to 12 hrs Print Language: Albanian
--- OUTSIDE RECORDS SUMMARY | 2024-09-17 07:33 | XMS_ITS | Encounter Summary ---
Author Organization [facility] Address [address] [place] [address] Phone Care Team Providers Care Intern Product Marketing Manager Name Role Phone Jade Ng NP Primary Care Provider [phone] Encounter Details Date Type Department Care Team (Late st Contact Info) Description 03/20/2017 Conversion Encounter [facility] - [address] [id number] Social History Tobacco Use Types Packs/Day Years Used Date Smoking Tobacco: Light Smoker Comments:Light tobacco smoke r Comments Unknown Sex and Gender Information Value Date Recorded Sex Assigned at Not on file Legal Sex Female 5:17 PM EDT Gender Identity Not on file Sexual Orientation Not on file documented as of this encounter Plan of Treatment Not on file documented as of this encounter Visit Diagnoses Not on filedocumented in this encounter Care Teams Intern Product Marketing Manager Relationship Specialty Start Date End Date Jade Ng NP PCP - General 03/14/17 documented as of this encounter
--- OUTSIDE RECORDS SUMMARY | 2024-09-17 07:33 | XMS_ITS | Encounter Summary ---
Author Organization [facility] Address [address] [place] [phone] Phone Care Team Providers Care Day Care Assistant Name Role Phone Jade Ng NP Primary Care Provider [phone] Encounter Details Date Type Department Care Team (Late st Contact Info) Description 11/09/2014 Documentation [facility] Family Medicine [address] [place] [address] Family Medicine, Physician [address] [place] [place], [place] [id number] Social History Tobacco Use Types Packs/Day Years Used Date Smoking Tobacco: Never Assessed Comments Unknown Sex and Gender Information Value Date Recorded Sex Assigned at Not on file Legal Sex Female 5:17 PM EDT Gender Identity Not on file Sexual Orientation Not on file documented as of this encounter Plan of Treatment Not on file documented as of this encounter Visit Diagnoses Not on filedocumented in this encounter Care Teams Day Care Assistant Relationship Specialty Start Date End Date Jade Ng NP PCP - General 03/14/17 documented as of this encounter
--- OUTSIDE RECORDS SUMMARY | 2024-09-17 07:33 | XMS_ITS | Clinical Summary ---
Author Organization [facility] Address [address] [place] [address] Phone Care Team Providers Care Market Sales Manager Name Role Phone Jade Ng REYNA Primary Care Provider Immunizations Immunization Administration Dates Next Due DTaP 05/04/2003, 2,12/22/1999,08/30 HPV Vaccine 9 Valent 01/29/2016,08/15/2015 HPV, Quadrivalent 06/21/2014 Hep A, ped/adol 08/15/2015,06/21/2014 Hep B, ped/adol 12/21/1999,1998,1998 Hib (PRP-T) 06/01/2002,12/04/1999,1998 IPV 05/04/2003, 2,12/21/1999,08/30 Influenza, injectable, MDCK, preservative free, quadrivalent 08/16/2016 Influenza, injectable, quadrivalent 06/21/2014 Influenza, injectable, quadr ivalent, preservative free 07/19/2015 MMR 05/04/2003,12/04/1999 Meningococcal Conj (Menactra) MCV4P 08/15/2015,1 08/19/2008 Tdap 01/13/2009 Varicella 09/06/2010,12/04/1999 Family History Relation Name Status Comments Father Alive Father: Alive a nd well Half-Sister Alive Half sister (M) : Alive and well Mother Alive Mother: Alive a nd well Social History Tobacco Use Types Packs/Day Years Used Date Smoking Tobacco: Light Smoker Comments:Light tobacco smoke r Comments Unknown Sex and Gender Information Value Date Recorded Sex Assigned at Not on file Legal Sex Female 5:17 PM EDT Gender Identity Not on file Sexual Orientation Not on file Last Filed Vital Signs Vital Sign Reading Time Taken Comments Blood Pressure 109/67 02/17/2017 12:00 AM EDT Pulse 94 02/17/2017 12:00 AM EDT Temperature 37.1 ??C (98.7 ??F) 02/17/2017 12:00 AM E DT Respiratory Rate - - Oxygen Saturation - - Inhaled Oxygen Concentration - - Weight 48.8 kg (107 lb 9.6 oz) 02/17/2017 12:00 AM EDT Height 156.2 cm (5' 1.5 ) 02/17/2017 12:00 AM ED T Body Mass Index 20 02/17/2017 12:00 AM EDT Plan of Treatment Health Maintenance Due Date Last Done Comments Consider Men B Vaccine (1 of 2 - Bexsero 2-dose series) 2014 DTaP,Tdap,and Td Vaccines (6 - Td or Tdap) 01/13/2019 01/13/2009, 05/04/2003, 06/01/2002, Additional history exists Influenza Vaccines (#1) 2024 08/16/19 17, 07/19/2015, 06/21/2014 COVID-19 Vaccine ( season) 2024 Hepatitis B Vaccines Completed 12/21/1999, 1998, 1998 HIB Vaccines Completed 06/01/2002, 09/1999, 1998 IPV Vaccines Completed 05/04/2003, 05/05, 12/21/1999, Additional history exists MMR Vaccines Completed 05/04/2003, 12/04/1999 Varicella Vaccines Completed 09/06/2010, 12/04/1999 Hepatitis A Vaccines Completed 08/15/2015, 06/21/20 14 Meningococcal Vaccine Completed 08/15/2015, 009 HPV Vaccines Completed 01/29/2016, 08/04, 06/21/2014 Men B Vaccine Aged Out No longer elig ible based on patient's age to complete this topic Pneumococcal Vaccine Aged Out No long er eligible based on patient's age to complete this topic Procedures * Due to [place] state law, this organization might not be sharing sensitive test results. Procedure Name Priority Date/Time Associated Diagnosis Comments CHLAMYDIA AND GONORRHEA, AMPLIFIED Routine 08/20/2016 12:39 PM EST from Last 3 Months or Most Recently Relevant to Health Maintenance Results * Due to [place] state law, this organization might not be sharing sensitive test results. * Chlamydia and Gonorrhoea, Amplified (08/20/2016 12:39 PM EST) URINE GC AMP [facility]BE NEGATIVE [facility] Comment: No Neisseria Gonorrhoeae RNA detected in this patient's sample (REFERENCE RANGE/NORMAL VALUE: NOT DETECTED) NOTE: This test uses online marketer-mediated amplification method to detect rRNA from C.Trachomatis and N.Gonorrhoeae. A negative result does not preclude infection. In the case of a negative urine result, testing of an endocervical(female) or urethral(male) specimen is recommended if there is high clinical suspicion of infection. The performance characteristics of this test have not been evaluated in children. The Aptima Combo2 assay is not intended for the evaluation of suspected sexual abuse or for other medico-legal indications. The ordering provider should assess if the patient had consensual sex without risk of sexual abuse. Consult the [facility] [place] if needed. Contact phone number . Therapeutic failure or success cannot be determined with the Aptima Combo2 assay since nucleic acid may persist following appropriate antimicrobial therapy. The Centers for Disease Control and Prevention (CDC) recommends confirmatory retesting using culture or a different nucleic acid amplification test when positive results occur, if indicated. Testing performed or reported by [facility], a Service of [facility], [address] [place] [address] [place] [address] CLIA ??[id number] Fantasma Mcghee MD, PhD, Management Trainee URINE CHLAMYDIA AMP PROBE NEGATIVE [facility] Comment: No Chlamydia Trachomatis RNA detected in this patient's sample (REFERENCE RANGE/NORMAL VALUE: NOT DETECTED) 08/20/2016 12:3 9 PM EST Narrative [facility] - 08/20/2016 12:39 PM EST URINE CHLAMYDIA GC AMP PROBE us Jade Ng NP LAB MICROBIOLOGY - GENERAL ORDER AMI Final Result [facility] [address] [place] [address], from Last 3 Months or Most Recently Relevant to Health Maintenance Care Teams Market Sales Manager Relationship Specialty Start Date End Date Jade Ng NP PCP - General 03/14/17
[2024-09-17 07:43] LABS: MANUAL DIFF FLAG NO
[2024-09-17 07:50] LABS: Basophils Absolute Auto 0.1 X10*3/uL (0.0-0.2); Basophils Percent Auto 1.7 % (0-2); Eosinophils Percent Auto 0.7 % (0-4); Hematocrit 40.4 % (37.0-47.0); Hemoglobin 14.1 g/dl (12.0-16.0); Imm Gran Abs Auto 0.02 X10*3/uL (0.00-0.03); Imm Gran Pct Auto 0.5 % (0.0-0.4); Lymphocytes Absolute Auto 1.6 X10*3/uL (1.2-4.9); Mean Corpuscular HGB Conc 34.9 g/dl (31.0-35.0); Mean Corpuscular Hemoglobin 33.5 pg (27.0-33.0); Mean Platelet Volume 9.5 fL (9.4-12.3); Monocytes Absolute Auto 0.3 X10*3/uL (0.1-1.2); Monocytes Percent Auto 7.2 % (2-11); Neutrophils Percent Auto 49.9 % (45-73); Platelet Count 269 X10*3/uL (160-400); Red Blood Count 4.21 X10*6/uL (4.20-5.50)
[2024-09-17 08:13] LABS: Alanine Aminotransferase 34 U/L (0-31); Albumin Level 4.8 g/dL (3.5-5.0); Alkaline Phosphatase 86 U/L (39-117); Anion Gap 16 (12-20); Aspartate Amino Transferase 45 U/L (5-31); Bilirubin Direct < 0.2 mg/dL (0.0-0.5); Bilirubin Total 0.1 mg/dL (0.0-1.0); Blood Urea Nitrogen 6 mg/dL (9-16); Carbon Dioxide 26 mmol/L (22-29); Chloride 106 mmol/L (96-108); Creatinine Clr Calc Pharmacy 97.7; Estimated Glomerular Filt Rate > 60; Ethanol 353 mg/dL; Glucose Random 103 mg/dL (60-115); HCG Quantitative < 2 mIU/mL; Magnesium 2.1 mg/dL (1.6-2.6); Potassium 3.6 mmol/L (3.3-5.1); Sodium 144 mmol/L (135-145); Total Protein 8.4 g/dL (6.5-8.0)
[2024-09-17 08:35] LABS: Appearance Urine Clear; Color Urine Yellow; Glucose Urine UA Negative (Negative); Leukocyte Esterase Urine Negative (Negative); Nitrite Urine Negative (Negative); Specific Gravity - Urine <= 1.005 (1.005-1.025); Urine Blood Negative (Negative); Urine Ketones Negative (Negative); Urine Protein Negative (Neg-Trace)
[2024-09-17 08:44] LABS: Amphetamine Screen Urine Not Detected (Not Detect); Barbiturates, Urine Not Detected (Not Detect); Benzodiazepines Screen Urine Not Detected (Not Detect); Buprenorphine Scr Not Detected (Not Detect); Cannabinoid Screen Urine POSITIVE (Not Detect); Cocaine Screen Urine POSITIVE (Not Detect); Fentanyl, urine Not Detected (Not Detect); Methadone Screen, Urine Not Detected (Not Detect); Opiate Screen Urine Not Detected (Not Detect); Oxycodone Screen Urine Not Detected (Not Detect); Phencyclidine Screen Urine Not Detected (Not Detect)
--- NOTE | 2024-09-17 09:19 | PC.NURSE ---
Pleasant and cooperative. Patient states she wants to leave Care team notified. Care team is going to talk to Dr Conway. Ethyl Alcohol-354. + cocaine and THC.
[2024-09-17 09:23] LABS: Influenza A PCR NEGATIVE (Negative); Influenza B PCR NEGATIVE (Negative); Resp Syncy Virus RNA Qual PCR NEGATIVE (Negative); SARS COV2 PCR INHOUSE NEGATIVE (Negative)
[2024-09-17] MEDS: Ibuprofen 600 MG TABLET PO (14:46)
--- NOTE | 2024-09-17 15:01 | MHC.CARE ---
[facility] Referral completed.
--- NOTE | 2024-09-17 15:28 | MHC.CARE ---
Patient seen by CARE team at time of sobriety, denies SI, help seeking. She is referred to [facility] for a 3 day follow up and also to [facility] for therapy. Engages easily in safety planning, collateral notified.
[2024-09-17 16:13] VITALS: BP 161/98; PULSE 133; RESP 16; TEMP 36.2; O2SAT 97
== END 2024-09-17 16:14 | disposition home or self-care (01) ==
PROVIDERS: Emergency Provider Emergency Medicine
DX: F33.1 Major depressive disorder, recurrent, moderate (principal); R45.851 Suicidal ideations; R00.0 Tachycardia, unspecified; F10.10 Alcohol abuse, uncomplicated; Y90.8 Blood alcohol level of 240 mg/100 ml or more; F17.210 Nicotine dependence, cigarettes, uncomplicated; Z79.899 Other long term (current) drug therapy; Z51.81 Encounter for therapeutic drug level monitoring; Z03.818 Encounter for observation for suspected exposure to other biological agents ruled out
CPT/HCPCS: 0241U; 80048; 80076; 80307; 81003; 83735; 84702; 85025; 93005; 99284; 99285; S9485

== ENCOUNTER → 2024-09-17 07:14 | Outpatient (BNV) | payer OTHER, SELFPAY | PROVIDERS: Emergency Provider Emergency Medicine; Visit Provider Internal Medicine Cardiovascular Disease | DX: R00.0 Tachycardia, unspecified (principal) | CPT/HCPCS: 93010 ==